=== PATIENT | female | born 1955 | race Caucasian/White ===

== ENCOUNTER 2021-12-06 14:31 | Outpatient (CLI) | payer MEDICARE, BC ==
[~2021-12-06 14:31] MED LIST: Magnevist 469MG/ML 20 ML VIAL ONE
== END 2021-12-06 14:32 | disposition home or self-care (01) ==
LOC: BICMRI 14:31
PROVIDERS: ATTEND Family Medicine
DX: R25.1 Tremor, unspecified (principal); R90.89 Other abnormal findings on diagnostic imaging of central nervous system
CPT/HCPCS: 70553; 82565; A9579

== ENCOUNTER 2022-05-17 08:17 | Outpatient (CLI) | payer MEDICARE, BC | END 2022-05-17 08:18 | disposition home or self-care (01) | LOC: NM 08:17 | PROVIDERS: ATTEND Psychiatry & Neurology Neurology | DX: G25.2 Other specified forms of tremor (principal) | CPT/HCPCS: 78803; A9584 ×2 ==